=== PATIENT | female | born 1960 | race Caucasian/White ===

== ENCOUNTER 2022-09-10 08:45 | Day surgery (SDC) | payer BC ==
[2022-09-06 14:48] VITALS: BP 124/76
[~2022-09-10] VITALS: Ht 182.9 cm; Wt 93.2 kg
[~2022-09-10 08:45] MED LIST: ADVIL200 MG PO; BACLOFEN10 MG PO; LIVER COMPLEX1 EACH PO; LOSARTAN POTASS50 MG PO; MAG-OXIDE200 MG PO; MOVE FREE ULTR1 EAC2 PO; NEPHRONEX-SL T1 EACH PO; PLAQUENIL200 MG PO; PROBIOTIC ACID1 EAC2 PO; TOPROL XL50 MG PO; TRAMADOL HCL50 MG PO; TURMERIC500 M3 PO; VIT C-ROSE HIP500 MG PO; ZETIA10 MG PO; ZINC16.7 MG PO
[2022-09-10 08:56] VITALS: BP 127/79
--- NOTE | 2022-09-10 11:24 | NUR ---
09/10/22 1124 [address],[place] [address] PT ARRIVED TO PACU AND WAKES OFF AND ON TO VERBAL STIMULI. PT REORIETNED TO PACU. PT DENIES CONCERNS. RESP EVEN AND UNLABORED.
[2022-09-10 11:39] VITALS: BP 141/75
--- NOTE | 2022-09-10 15:24 | OR ---
[facility] [address], [place] [address] Signed DATE OF OPERATION: 09/10/2022 SURGEON: Marie Broussard MD PREOPERATIVE DIAGNOSIS: Screening colonoscopy. POSTOPERATIVE DIAGNOSIS: Normal colon to cecum. PROCEDURE: Total colonoscopy to cecum. ANESTHESIA: Intravenous sedation (propofol technique), Jeancarlos Lamas CRNA. INDICATION: This 61-year-old white woman is a patient of VENITA Sherman and was referred for screening colonoscopy. She last underwent colonoscopy in 2009 by [facility], which showed a diminutive polyp of the rectosigmoid, considered hyperplastic. She is currently having no symptoms of bleeding, diarrhea or constipation. She does have family history of colon cancer in a paternal uncle. Her past medical history is remarkable for cholecystectomy and liver biopsy as well as ankle operation. She has manifestations of autoimmune hepatitis and underlying lupus. She is admitted at this time to undergo colonoscopy for surveillance. She understands the risk of bleeding, infection, and perforation. FINDINGS: The prep was excellent. Complete colonoscopy was undertaken to the cecum without question. She had no evidence of polyps, diverticular formation, colitis, or cancer. DESCRIPTION OF PROCEDURE: The patient was taken to the endoscopy suite and placed in the lateral decubitus position, given intravenous sedation with propofol infusional technique. Digital rectal examination was found to be normal. An Olympus video colonoscope was inserted into the rectum and manipulation throughout the colon ultimately allowed for intubation of the cecum. The ileocecal valve and appendiceal orifice were normal. The scope was withdrawn from that point. Examination throughout showed no sign of abnormality, specifically no polyps, diverticular formation, colitis, or cancer. Retroflexed view of the rectum was normal as well. The scope was removed and the patient was taken to the Electronically Signed By: MARIE BROUSSARD MD 09/10/22 1524 PATIENT NAME: PARVEZ ERICKSON OPERATIVE REPORT DATE OF : 56 REPORT #: [id number] PHYSICIAN: MARIE BROUSSARD MD PCP: MARTHA MARTI REPORT IS CONFIDENTIAL AND NOT TO BE RELEASED WITHOUT AUTHORIZATION [facility] [address], [place] [address] Signed recovery room in good condition. CONCLUDING DIAGNOSIS: Normal colon to cecum. PLAN: Recommend repeat colonoscopy in 10 years, sooner if clinically indicated. She will return to the ongoing care of VENITA Sherman. Marie Broussard MD JM/MODL /[id number] cc: VENITA Sherman. Copies: ~ Electronically Signed By: MARIE BROUSSARD MD 09/10/22 1524 PATIENT NAME: PARVEZ ERICKSON OPERATIVE REPORT DATE OF : 56 REPORT #: [id number] PHYSICIAN: MARIE BROUSSARD MD PCP: MARTHA MARTI REPORT IS CONFIDENTIAL AND NOT TO BE RELEASED WITHOUT AUTHORIZATION
== END 2022-09-10 11:45 | disposition home or self-care (01) ==
LOC: DS 08:45 → OPS 08:45
PROVIDERS: ATTEND Surgery
PROC: 0DJD8ZZ Inspection of Lower Intestinal Tract, Via Natural or Artificial Opening Endoscopic (ICD-10-PCS; principal; 2022-09-10 10:15)
DX: Z12.11 Encounter for screening for malignant neoplasm of colon (principal); Z87.19 Personal history of other diseases of the digestive system
CPT/HCPCS: 00812; J2001; J2704; J7121